=== PATIENT | female | born 1935 | race Hispanic/Latino ===

== ENCOUNTER 2017-08-13 12:02 | Emergency (ER) | payer OTHER ==
[2017-08-13] MEDS ORDERED: KETOROLAC TROMETHAMINE 30MG/ML ONE (12:31)
== END 2017-08-13 14:06 | disposition home or self-care (01) ==
LOC: EDH 12:02
DX: M17.11 Unilateral primary osteoarthritis, right knee (principal); E11.9 Type 2 diabetes mellitus without complications; E78.00 Pure hypercholesterolemia, unspecified; I10 Essential (primary) hypertension; Z88.6 Allergy status to analgesic agent; Z90.49 Acquired absence of other specified parts of digestive tract
CPT/HCPCS: 73562; 96372; 99284; J1885